=== PATIENT | female | born 1935 | race Caucasian/White ===

== ENCOUNTER 2016-06-19 14:01 | Observation (INO) | payer OTHER ==
[2016-06-19] MEDS ORDERED: ASPIRIN PO STA (14:13)
[2016-06-19 14:36] LABS: MANUAL DIFF NEEDED? NO
[2016-06-19 14:38] LABS: BASO% 0.4 % (0.0-0.8); EOS# 0.12 X1000 (0.0-0.7); EOS% 1.7 % (0.0-10.0); HEMATOCRIT 44.4 % (37.0-47.0); HEMOGLOBIN 14.9 g/dL (12.0-16.0); LYMPH# 1.88 X1000 (1.2-3.4); LYMPH% 26.7 % (20.5-51.1); MCH 30.8 PG (27-31); MCHC 33.6 g/dL (33-37); MCV 91.9 FL (81-99); MONO# 0.82 X1000 (0.11-0.59); MONO% 11.6 % (1.7-9.3); MPV 12.3 FL (7.4-10.4); NEUT% 59.6 % (42.2-75.2); PLT 189 X1000 (130-400); RBC 4.83 XMIL (4.2-5.4)
[2016-06-19 14:58] LABS: AGAP 11; ALBUMIN 4.1 g/dL (3.5-5.0); ALKALINE PHOSPHATASE 84 U/L (32-104); BUN 16 mg/dL (8-22); CALCIUM 9.5 mg/dL (8.8-10.2); CHLORIDE 103 mmol/L (98-107); CK PROFILE 98 U/L (24-173); COSMO 282; GOT 41 U/L (10-30); GPT 79 U/L (10-36); INR 1.02 (0.86-1.15); MAGNESIUM 1.8 mg/dL (1.5-2.7); POTASSIUM 3.7 mmol/L (3.5-5.1); PROTIME 13.7 Seconds (12.1-15.5); SODIUM 140 mmol/L (136-145); TCO2 26 mmol/L (25-35); TOTAL PROTEIN 6.6 g/dL (6.3-8.3)
[2016-06-19 14:59] LABS: PTT PL 33.3 Seconds (22.6-43.9)
--- NOTE | 2016-06-19 15:30 | Diag Imaging Result Document ---
PROCEDURE NAME: CHEST-2 VIEWS - 06/19/2016 CHEST X-RAY 2 VIEWS: COMPARISON: Chest CT, 08/03/2014. FINDINGS: Stable calcified granuloma in the lateral right lung base. No focal infiltrates, pneumothorax, or pleural effusion. Heart size is normal. IMPRESSION: No acute disease.
--- NOTE | 2016-06-19 15:44 | EKG Report ---
Test Performed on : 06/19/2016 2:44:33 PM Test Reason : CHEST PAIN Blood Pressure : / mmHG Vent. Rate : 117 BPM Atrial Rate : 117 BPM P-R Int : 208 ms QRS Dur : 078 ms QT Int : 342 ms P-R-T Axes : 078 -78 079 degrees QTc Int : 477 ms Sinus tachycardia. with premature supraventricular complexes. Low voltage QRS Left anterior fascicular block Cannot rule out Anteroseptal infarct , age undetermined Abnormal ECG No previous ECGs available Unconfirmed Result
--- NOTE | 2016-06-19 15:45 | PROVIDER DOCUMENTATION ---
HPI-Chest Pain - General Source: patient, family - History of Present Illness-CP Location: reports: substernal, epigastric Chest Pain Radiation: reports: back Quality of Pain: reports: aching Severity in ED: moderate Onset/Duration: other (2 1/2 weeks) Context/Activities at Onset: reports: none Nitro Today/Relief: no nitro taken today Aspirin Treatment Today: 81 mg x 1, provided at home Prior Chest Pain/Cardiac Workup: reports: no prior chest pain Similar Symptoms Previously?: No Recently Seen Here or By Another Healthcare Provider: No <Rex Woody - Last Filed: 06/19/16 17:49> <Washington Mason - Last Filed: 06/19/16 18:15> - General Chief Complaint: Palpitations Stated Complaint: CHEST PAIN Time Seen by Provider: 06/19/16 14:36 Allergies/Adverse Reactions: Patient Allergies Allergy/AdvReac Type Severity Reaction Status Date / Time Sulfa (Sulfonamide Allergy Unknown Verified 06/19/16 14:12 Antibiotics) - History of Present Illness-CP Nature of Presenting Problem: Reports no [facility] except COPD with cc of substernal chest pain with sob x 2.5 weeks. rad to epigastric to middle of back started out 10/10 now is 5/10. Heating pad on back helps exertion worsens. Nebulizer no relief. (Rex Woody ) Review of Systems - Adult - REVIEW OF SYSTEMS - ADULT Constitutional: denies: chills, fever, fatique Eyes: reports: no symptoms reported Ears, Nose, Mouth & Throat: reports: no symptoms reported Cardiovascular: reports: chest pain, syncope. denies: irregular heart rate, orthopnea Respiratory: reports: shortness of breath. denies: cough, pleurisy, wheezing Gastrointestinal: reports: no symptoms reported Genitourinary: reports: no symptoms reported Musculoskeletal: reports: no symptoms reported Integumentary: reports: no symptoms reported Neurological: reports: no symptoms reported Psychiatric: reports: no symptoms reported Endocrine: reports: no symptoms reported Hematologic/Lymphatic: reports: no symptoms reported Allergic/Immunologic: reports: no symptoms reported All Other Systems: Reviewed and Negative <Rex Woody - Last Filed: 06/19/16 17:49> Past History - Adult - PAST MEDICAL HISTORY-ADULT Review of Records: reports: Nursing Assessment Review Major Childhood Illnesses: reports: denies history Cardiovascular: reports: HTN, hyperlipidemia Respiratory: reports: COPD - PRIOR SURGERIES/PROCEDURES Surgical/Procedure History: reports: orthopedic (extremity) (left knee sx), back /neck - IMMUNIZATION STATUS Childhood Immunizations: See Nurse Assessment Flu Vaccine: See Nurse Assessment - FAMILY HISTORY Family History: reviewed, not pertinent - SOCIAL HISTORY Smoking: quit greater than 1 year (2 1/2 yr) Substance Use: none/never <Rex Woody - Last Filed: 06/19/16 17:49> Physical Exam-General - PHYSICAL EXAM-ADULT Initial Vital Signs Reviewed: Yes - CONSTITUTIONAL General Appearance: appears well, alert, no apparent distress - EYES Eyes: PERRL/EOMI, pink conjunctivae - HEAD, EARS, NOSE, MOUTH & THROAT HENMT: normocephalic/atraumatic, moist mucous membranes, normal ENT inspection - NECK Neck: non-tender, full range of motion, supple, normal inspection - RESPIRATORY Respiratory: chest non-tender, lungs clear, normal breath sounds, no pleuratic chest pain, no respiratory distress, no accessory muscle use - CARDIOVASCULAR Cardiovascular: normal peripheral pulses, no edema, tachycardia, irregularly irregular - CHEST (BREASTS) Chest/Breast: tenderness (right anterior chest ttp) - GASTROINTESTINAL (ABDOMEN) Abdominal Exam: normal bowel sounds, non tender, soft, no organomegaly, no pulsatile mass - LYMPHATIC Lymphatic: no adenopathy - MUSCULOSKELETAL Back Exam: normal inspection, no CVA tenderness, no vertebral tenderness Extremity: normal range of motion, non-tender, other (bilateral LE vericose veins) - SKIN Integumentary: normal color, normal turgor, warm/dry - NEUROLOGIC Neurologic: grossly normal, no motor/sensory deficits - PSYCHIATRIC Psych/Mental Status: normal mood/affect, normal thought content, normal thought process, oriented x 3 <Rex Woody - Last Filed: 06/19/16 17:49> Progress - EKG 1 Time of EKG reading by physician:: 14:44 EKG Read and Signed by:: Jarod Coffey Jr EKG Interpretation (*Must complete 3 of following elements*): Abnormal (cannot rule out anteroseptal infarct age undetermined) Rate: 117 Rhythm: sinus tachy with sg supravent compl QRS: other (low voltage QRS; LAFB) - XRAY 1 XRAY: Bilateral XRAY Study: Chest Impression: Normal XRAY Interpretation: nad - CONSULTS/PCP/HOSPITALIST Notification #1 *Consult/PCP/Hospitalist*: Time Discussed: 17:43 Reason/Comments: Consult birthing nurse start on Heparin Consult Disposition: Admit <Rex Woody - Last Filed: 06/19/16 17:49> - CONSULTS/PCP/HOSPITALIST Notification #1 *Consult/PCP/Hospitalist*: Dr Lara Time Discussed: 18:13 Reason/Comments: plan of treatment Consult Disposition: other (agree with plan of care and admitting to Mag. Will consult) <Washington Mason - Last Filed: 06/19/16 18:15> - PLAN OF CARE/RESULTS Progress/Plan/Lab Results: Orders Category Date Time Status Cardiac Monitoring DIRECTED Care 06/19/16 14:14 Active Oxygen Therapy- ED Nursing DIRECTED Care 06/19/16 14:14 Active Saline Loc NOW Care 06/19/16 14:14 Active CHEST-2 VIEWS [RAD] Stat Exams 06/19/16 14:14 Draft CBC WITH ELECTRONIC DIFF [HEME] Stat Lab 06/19/16 14:30 Completed CK PROFILE [SP CHEM] Stat Lab 06/19/16 14:30 Completed COMPREHENSIVE METABOLIC PANEL [CHEM] Stat Lab 06/19/16 14:30 Completed MAGNESIUM [CHEM] Stat Lab 06/19/16 14:30 Completed PRO B-NATRIURETIC PEPTIDE Stat Lab 06/19/16 14:30 Completed [address]IME WITH INR PL [COAG] Stat Lab 06/19/16 14:[address] [COAG] Stat Lab 06/19/16 14:30 Completed TROPONIN T Stat Lab 06/19/16 14:30 Completed Aspirin Med 06/19/16 14:13 Discontinued 325 mg PO STAT STA EKG [EKG] Stat Ther 06/19/16 14:14 Ordered Vital Signs - 24 hr 06/19/16 14:10 Temperature 97.8 F Pulse Rate 133 H Respiratory 22 Rate Blood Pressure 129/95 O2 Sat by Pulse 95 Oximetry Laboratory Tests 06/19/16 06/19/16 06/19/16 14:30 14:30 14:30 WBC RBC Hgb Hct MCV MCH MCHC RDW Std Deviation Plt Count MPV Immature Gran % (Auto) Neut % (Auto) Lymph % (Auto) [place] % (Auto) Eos % (Auto) Baso % (Auto) Immature Gran # (Auto) Neut # (Auto) Lymph # (Auto) [place] # (Auto) Eos # (Auto) Baso # (Auto) PT INR APTT (Factor Assay) Sodium 140 Potassium 3.7 Chloride 103 Carbon Dioxide 26 Anion Gap 11 BUN 16 Creatinine 0.8 Estimated GFR/1.73 m2 > 60 BUN/Creatinine Ratio 20 Glucose 118 H Calculated Osmolality 282 Calcium 9.5 Magnesium 1.8 Total Bilirubin 0.40 AST 41 H ALT 79 H Alkaline Phosphatase 84 Creatine Kinase 98 Troponin T 0.450 H* Vyi-J-Tcrlbuxkzkz Pept 3725 H Total Protein 6.6 Albumin 4.1 Globulin 3.0 Albumin/Globulin Ratio 2.0 06/19/16 06/19/16 14:30 14:30 WBC 7.04 RBC 4.83 Hgb 14.9 Hct 44.4 MCV 91.9 MCH 30.8 MCHC 33.6 RDW Std Deviation 13.1 Plt Count 189 MPV 12.3 H Immature Gran % (Auto) 0.0 Neut % (Auto) 59.6 Lymph % (Auto) 26.7 [place] % (Auto) 11.6 H Eos % (Auto) 1.7 Baso % (Auto) 0.4 Immature Gran # (Auto) 0.00 Neut # (Auto) 4.19 Lymph # (Auto) 1.88 [place] # (Auto) 0.82 H Eos # (Auto) 0.12 Baso # (Auto) 0.03 PT 13.7 INR 1.02 APTT (Factor Assay) 33.3 Sodium Potassium Chloride Carbon Dioxide Anion Gap BUN Creatinine Estimated GFR/1.73 m2 BUN/Creatinine Ratio Glucose Calculated Osmolality Calcium Magnesium Total Bilirubin AST ALT Alkaline Phosphatase Creatine Kinase Troponin T Lbs-F-Tigcdbztuau Pept Total Protein Albumin Globulin Albumin/Globulin Ratio Dr.Seljuki delgado [id number] MD Jo delgado again Hospitalist danny [id number] [employer] danny (Rex Woody) Departure - Departure Time of Disposition Order: 15:42 Certified Medical Emergency: Emergent <Rex Woody - Last Filed: 06/19/16 17:49> <Washington Mason - Last Filed: 06/19/16 18:15> - Departure DIAGNOSIS: New onset a-fib, NSTEMI (non-ST elevated myocardial infarction) Disposition: ADMITTED INPATIENT 09 Condition: Stable Referrals: Catarina Osorio MD [Primary Care Provider] - Attestation - Scribe Verification/Attestation Scribe:: Rex Woody Acting as Scribe for:: Jarod Coffey Jr Scribe documention review:: This chart was documented by a scribe and accurately reflects the service the provider performed and the decisions made by the provider. <Rex Woody - Last Filed: 06/19/16 17:49> - Scribe Verification/Attestation Scribe:: Washington Mason Acting as Scribe for:: Jarod Coffey Jr Scribe documention review:: This chart was documented by a scribe and accurately reflects the service the provider performed and the decisions made by the provider. <Washington Mason - Last Filed: 06/19/16 18:15> Physician Attestation
[2016-06-19] MEDS ORDERED: CARDIZEM IV ONE ×2 (15:50→17:50)
[2016-06-19] MEDS ORDERED: HEPARIN IV ONE (17:49)
[2016-06-19] MEDS ORDERED: ZOFRAN IV PRN (20:59)
[2016-06-19] MEDS ORDERED: NITROGLYCERIN SL PRN (20:59)
[2016-06-19] MEDS ORDERED: TYLENOL PO PRN (20:59)
[2016-06-20 06:39] LABS: AGAP 8; ALBUMIN 3.7 g/dL (3.5-5.0); ALKALINE PHOSPHATASE 72 U/L (32-104); BUN 16 mg/dL (8-22); CALCIUM 9.1 mg/dL (8.8-10.2); CHLORIDE 108 mmol/L (98-107); COSMO 287; GOT 30 U/L (10-30); GPT 61 U/L (10-36); HDL 56 mg/dL (45-65); LDL 100 mg/dL; MAGNESIUM 1.8 mg/dL (1.5-2.7); POTASSIUM 3.8 mmol/L (3.5-5.1); SODIUM 143 mmol/L (136-145); TCO2 27 mmol/L (25-35); TRIGLYCERIDES 113 mg/dL (35-135); VLDL 23 mg/dL
[2016-06-20] MEDS ORDERED: PRILOSEC PO SCH (07:00)
[2016-06-20 07:44] VITALS: BP 110/55
--- NOTE | 2016-06-20 08:50 | EKG Report ---
Test Performed on : 06/20/2016 07:23:28 AM Test Reason : cp Blood Pressure : / mmHG Vent. Rate : 084 BPM Atrial Rate : 084 BPM P-R Int : 166 ms QRS Dur : 078 ms QT Int : 386 ms P-R-T Axes : 069 -47 019 degrees QTc Int : 456 ms Normal sinus rhythm. with sinus arrhythmia. Left axis deviation Low voltage QRS Cannot rule out Anteroseptal infarct (cited on or before 19-JUN-2016) Abnormal ECG When compared with ECG of 19-JUN-2016 14:44, (Unconfirmed) premature supraventricular complexes. are no longer present Questionable change in initial forces of Septal leads ST elevation now present in Anterior leads Unconfirmed Result
[2016-06-20] MEDS ORDERED: ASPIRIN EC PO SCH (09:00)
--- NOTE | 2016-06-20 09:20 | PROGRESS NOTE ---
DATE: 06/20/2016 SUBJECTIVE: Patient notes her chest pain is better although she still feels as though an elephant is sitting on her chest at times. States she is having difficulty breathing at times secondary to the chest pressure. Denies any radiation to her jaw or her left arm. Denies any nausea, vomiting. Denies any GI or issues otherwise. PHYSICAL EXAMINATION: Vital signs: Temperature 98 degrees, pulse 91, respiratory 18, BP 112/61, saturation 95% on room air. General: The patient is well developed, well nourished. Pleasant to talk with. Elderly female, who is in currently no respiratory distress. She is awake, alert, oriented. Neck: Supple. CV: Regular rate. Chest: Relatively clear. Abdomen: Soft, nondistended. Extremities: Moves all extremities. LABS: CBC normal. CMP essentially normal. Her AST and ALT are both improving. Troponin remains elevated at 0.65. ASSESSMENT: Chest pain. This is likely cardiac in nature. We will keep her NPO. We will attempt to schedule a stress test today. Will talk with cardiology about further plans.
[2016-06-20] MEDS ORDERED: ASPIRIN PO ONE (09:33)
[2016-06-20] MEDS ORDERED: HEPARIN IV ONE (09:38)
[2016-06-20] MEDS ORDERED: LOPRESSOR PO SCH (09:45)
--- NOTE | 2016-06-20 10:04 | ECHO REPORT ---
ORDER DATE: 06/19/2016 PROCEDURE: Echocardiogram. ECHOCARDIOGRAPHIC MEASUREMENTS: 1. Interventricular septum 1.0. 2. Left ventricular posterior wall 0.7. 3. Diastolic diameter 5.4 4. Left atrium 3.1. 5. Aorta 3.1. INTERPRETATION: 1. Normal left ventricular cavity size with severely reduced systolic function. Estimated ejection fraction of 20%. There is anterior apical anteroseptal akinesis. 2. Aortic valve leaflets are trileaflet. 3. Mitral valve was normal. 4. Tricuspid valve was normal. 5. Pulmonic valve is normal. 6. Left atrial enlargement. 7. Peak velocity across the aortic valve less than 2 m/sec. There is no aortic stenosis or regurgitation. 8. There is mild mitral regurgitation. 9. There is mild to moderate tricuspid regurgitation. Peak velocity across the tricuspid valve was 3 m/sec. 10. Pulmonary artery systolic pressure of 46-50 mmHg. 11. There is no pericardial effusion or obvious intracardiac mass or thrombus seen.
--- NOTE | 2016-06-20 11:49 | HISTORY AND PHYSICAL ---
PRIMARY CARE PHYSICIAN: Catarina Osorio MD CHIEF COMPLAINT: Chest pain and shortness of breath for the past two and a half weeks that has progressively worsened. HISTORY OF PRESENTING ILLNESS: This is an 81-year-old female, who presented to [facility] ER with complaints of substernal, epigastric and back pain, along with shortness of breath that she states has been present intermittently for the past 2-1/2 weeks, but worsened yesterday. States exertion made the chest pain worse, heating pad made the symptoms better. On arrival to the emergency room, she was noted to have a heart rate of 133. EKG showed sinus tachycardia with premature supraventricular complexes at 117. Chest x-ray showed no acute disease. Laboratory data showed an initial troponin of 0.450; second set of 0.610; third set this morning of at 0.651. She was admitted for further evaluation and treatment. PAST MEDICAL HISTORY: Hypertension, hyperlipidemia, COPD. PAST SURGICAL HISTORY: Left knee replacement, back and neck surgery. FAMILY HISTORY: Noncontributory. SOCIAL HISTORY: She currently lives with family. Denies any tobacco use, stating she quit approximately 2-1/2 years ago. Denies any alcohol or illicit drug use. ALLERGIES: Sulfa. HOME MEDICATIONS: States that she is not taking any medications on a routine basis. LABORATORY DATA: Showed a white blood cell count of 7.04, hemoglobin of 14.9, hematocrit 44.4, platelets 189,. PT and INR of 13.7 and 1.02. Sodium of 140, potassium 3.7, chloride 103, CO2 26, BUN of 16, creatinine 0.8, glucose 118. AST 41, ALT 79. Creatine kinase of 98 with a troponin of 0.450 initially. Second set showed a creatine kinase of 125 with a troponin of 0.610, and the third set showed a creatine kinase of 103 with a troponin of 0.651. It appears in the emergency room she was given 2 doses of Cardizem 10 mg IV, and a heparin dose of 4900 units IV x1, and aspirin 325 mg p.o. x1. REVIEW OF SYSTEMS: She denied any fever, chills, blurred vision, dizziness. She was positive for substernal chest pain and epigastric pain and back pain, along with shortness of breath. Otherwise, negative review of systems. PHYSICAL EXAMINATION: VITAL SIGNS: On arrival, she had a temperature of 97.8 degrees, pulse 133, respirations 22, blood pressure 129/95, satting 95% on room air. GENERAL: This is an 81-year-old female lying in the bed, answers questions appropriately. HEENT: Normocephalic, atraumatic. Pupils are equal, round, reactive to light. Extraocular movements are intact. Oropharynx and nares are clear. NECK: Supple. LUNGS: Clear to auscultation bilaterally with equal lung expansion and chest wall movement. HEART: With regular rate and rhythm. No murmurs, rubs, or gallops. ABDOMEN: Soft, nontender, nondistended. Bowel sounds are present x4 quadrants. EXTREMITIES: There is no clubbing, cyanosis, or edema. NEUROLOGICAL: The cranial nerves 2-12 are grossly intact. ASSESSMENT: 1. Chest pain. 2. Elevated troponin. 3. Non-ST segment elevated myocardial infarction. 4. Hypertension. PLAN: She has been admitted to the medical unit at [facility], placed on O2 per protocol. Placed on telemetry. Held n.p.o. Consult cardiology. Continue her medication regimen at this time. Further orders after seen by cardiology. Dictated by ROSA Brizuela for Joe Hathaway MD
--- NOTE | 2016-06-20 22:33 | DISCHARGE SUMMARY ---
ADMISSION DATE: 06/19/2016 DISCHARGE DATE: 06/20/2016 PRIMARY CARE PHYSICIAN: Catarina Osorio M.D. ADMISSION DIAGNOSES: 1. Chest pain. 2. Elevated troponin. 3. Non-STEMI. 4. Hypertension. DISCHARGE DIAGNOSES: 1. Chest pain. 2. Elevated troponin. 3. Non-STEMI. 4. Hypertension. SUMMARY OF FINDINGS: This is an 81-year-old female who presented to [facility] [place] ER with complaints of substernal, epigastric and back pain with shortness of breath for the past 2-1/2 weeks stating exertion made her symptoms worse, a heating pad made them better. When she arrived to the emergency room, she had an elevated troponin of 0.450. Subsequent troponins were 0.610 and 0.651. She was noted to have sinus tachycardia in the ER and had been given Cardizem 10 mg IV x2 doses, heparin 4900 units IV x1 and an aspirin 325 mg p.o. x1. Cardiology was consulted and saw the patient this morning. It was felt that she needed transfer to [facility] for further cardiac intervention. She was started by Cardiology on Lopressor 25 mg p.o. b.i.d. and atorvastatin 40 mg p.o. daily. He also gave a one time dose of heparin 5000 units IV x1 now. She will remain NPO. All discharge instructions have been reviewed with the patient about her transfer to [facility], and she and her both verbalized understanding. TOTAL TIME SPENT ON DISCHARGE: 35 minutes. Dictated by ROSA Brizuela for Joe Hathaway MD
[2016-06-21] MEDS ORDERED: LIPITOR PO SCH (09:00)
== END 2016-06-20 11:30 | disposition short-term general hospital (02) ==
LOC: P.ED 14:01 → INTOOBSV 18:32 → P.MEDSURG 18:32
PROVIDERS: ATTEND Family Medicine
DX: I21.4 Non-ST elevation (NSTEMI) myocardial infarction (principal); R74.8 Abnormal levels of other serum enzymes; R07.2 Precordial pain; I10 Essential (primary) hypertension; E78.5 Hyperlipidemia, unspecified; I48.91 Unspecified atrial fibrillation; R10.13 Epigastric pain; J44.9 Chronic obstructive pulmonary disease, unspecified; R06.02 Shortness of breath; M54.9 Dorsalgia, unspecified; R00.2 Palpitations; R55 Syncope and collapse; I83.93 Asymptomatic varicose veins of bilateral lower extremities; Z87.891 Personal history of nicotine dependence
CPT/HCPCS: 36415; 71020; 80053; 80061; 82550; 83735; 83880; 84443; 84484; 85025; 85610; 85730; 93005; 93017; 93306; 96374; 96375; J1644